=== PATIENT | female | born 1975 | race Caucasian/White ===

== ENCOUNTER 2022-08-04 12:42 | Outpatient (CLI) | payer OTHER, SELFPAY ==
--- NOTE | 2022-08-04 13:00 | CRLHL7_ITS ---
For Patients: As a result of the Cures Act, medical imaging exams and procedure reports are released immediately into your electronic medical record. You may view this report before your referring provider. If you have questions, please contact your health care provider. BILATERAL SCREENING MAMMOGRAM WITH COMPUTER-AIDED DETECTION AND TOMOSYNTHESIS TECHNIQUE: CC and MLO views were obtained. These mammographic images have been obtained using full-field digital technique. These mammographic images were interpreted with the benefit of computer-aided detection. Breast tomosynthesis was used in this interpretation. COMPARISON FILM: 07/01/21, 03/19/20, 11/15/18. FINDINGS: There are scattered areas of fibroglandular density. IMPRESSION: There is no radiographic evidence for malignancy. ASSESSMENT: BI-RADS Category 1: Negative RECOMMENDATION: Routine screening mammogram in 1 year. A lay language report of this examination will be provided to the patient. ALPHONSO GARCIA M.D. Diagnostic Radiologist [email or web address] Transcribed: 08/05/2022, 6:[address]/Dictated by: Alphonso Garcia MD @ 08/05/2022 8:33:00 AM (Electronically Signed)
== END 2022-08-04 12:43 | disposition home or self-care (01) ==
LOC: MAMMO 12:43
PROVIDERS: Visit Provider Obstetrics & Gynecology
DX: Z12.31 Encounter for screening mammogram for malignant neoplasm of breast (principal)
CPT/HCPCS: 77063; 77067

== ENCOUNTER 2022-08-04 13:52 | Outpatient (CLI) | payer OTHER, SELFPAY ==
[2022-08-04 16:43] LABS: Cholesterol* 219 mg/dL (90-199); Triglycerides* 126 mg/dL (40-149)
[2022-08-04 16:44] LABS: HDL Cholesterol* 59 mg/dL (>=50); LDL Cholesterol Calculated 135 mg/dL (<100)
== END 2022-08-04 13:53 | disposition home or self-care (01) ==
LOC: NFLDREF 13:55
PROVIDERS: Visit Provider Obstetrics & Gynecology
DX: Z13.6 Encounter for screening for cardiovascular disorders (principal)
CPT/HCPCS: 80061; 82947

== ENCOUNTER 2023-09-07 14:31 | Outpatient (CLI) | payer OTHER, SELFPAY | END 2023-09-07 14:32 | disposition home or self-care (01) | LOC: NFLDREF 09-09 08:36 | PROVIDERS: Visit Provider Obstetrics & Gynecology | DX: Z13.220 Encounter for screening for lipoid disorders (principal) | CPT/HCPCS: 80061 ==

== ENCOUNTER 2023-11-09 13:26 | Outpatient (CLI) | payer OTHER, SELFPAY ==
--- NOTE | 2023-11-09 13:40 | MM_ITS ---
Patient: ANGELIC SERRATO Facility:?[facility] Patient ID:?[id number] Site Patient ID:?[id number]. Site :?[id number] Study:?XRay-Breast Bilateral 3D W/CAD-11/09/2023 2:21:54 PM Ordering Physician:Luis Final Report: BILATERAL SCREENING MAMMOGRAM WITH COMPUTER-AIDED DETECTION AND TOMOSYNTHESIS TECHNIQUE: CC and MLO views were obtained. These mammographic images have been obtained using full-field digital technique. These mammographic images were interpreted with the benefit of computer-aided detection. Breast Tomosynthesis was used in this interpretation. COMPARISON FILM: 08/04/22, 07/01/21, 03/19/20. FINDINGS: There are scattered areas of fibroglandular density. IMPRESSION: There is no radiographic evidence for malignancy. ASSESSMENT: BI-RADS Category 1: Negative RECOMMENDATION: Routine screening mammogram in 1 year. A lay language report of this examination will be provided to the patient. Alphonso David M.D. Diagnostic Radiologist [email or web address] DSM/sp R& Transcribed: 3:45 [address] SP/Dictated by: Alphonso David MD @ 11/11/2023 10:23:00 AM Signed by:?Alphonso David MD @11/11/2023 3:49:47 PM (Electronic Signature)
== END 2023-11-09 13:27 | disposition home or self-care (01) ==
LOC: MAMMO 13:28
PROVIDERS: Visit Provider Obstetrics & Gynecology
DX: Z12.31 Encounter for screening mammogram for malignant neoplasm of breast (principal)
CPT/HCPCS: 77063; 77067

== ENCOUNTER 2024-12-05 14:09 | Outpatient (CLI) | payer OTHER, SELFPAY | END 2024-12-05 14:10 | disposition home or self-care (01) | PROVIDERS: Visit Provider Obstetrics & Gynecology | DX: R23.2 Flushing (principal); Z13.6 Encounter for screening for cardiovascular disorders | CPT/HCPCS: 80061; 83001 ==

== ENCOUNTER 2024-12-19 11:25 | Outpatient (CLI) | payer OTHER, SELFPAY ==
--- NOTE | 2024-12-19 11:30 | CRLHL7_ITS ---
For Patients: As a result of the Century Cures Act, medical imaging exams and procedure reports are released immediately into your electronic medical record. You may view this report before your referring provider. If you have questions, please contact your health care provider. INDICATION: BILATERAL SCREENING MAMMOGRAM, ASYMPTOMATIC 48 Y/O FEMALE COMPARISON: 11/09/23, 08/04/22, 07/01/21 TECHNIQUE: CC and MLO views were obtained. These mammographic images have been obtained using full-field digital technique. These mammographic images were interpreted with the benefit of computer aided detection and tomosynthesis. BREAST COMPOSITION: There are scattered areas of fibroglandular density. FINDINGS: No suspicious findings. ASSESSMENT: BI-RADS 1 Negative RECOMMENDATION: Annual screening mammogram. A lay language report of this examination will be provided to the patient. Dictated by: Alphonso David MD @ 12/20/2024 11:12:32 (Electronically Signed)
== END 2024-12-19 11:26 | disposition home or self-care (01) ==
LOC: MAMMO 11:25
PROVIDERS: PCP Family Medicine; Visit Provider Obstetrics & Gynecology
DX: Z12.31 Encounter for screening mammogram for malignant neoplasm of breast (principal)
CPT/HCPCS: 77063; 77067